=== PATIENT | female | born 1950 | race Asian ===

== ENCOUNTER 2018-01-01 16:56 | Emergency (ER) | payer OTHER ==
[2018-01-01] MEDS ORDERED: TORADOL IM ONE (20:42)
[2018-01-01] MEDS ORDERED: ZOFRAN ODT ONE (20:58)
[2018-01-01] MEDS ORDERED: ZOFRAN ODT PO ONE (21:03)
--- NOTE | 2018-01-01 21:06 | Emergency Department Report ---
ED Neck Pain HPI Chief Complaint: Neck Pain/Injury Stated Complaint: NECK PAIN Time Seen by Provider: 01/01/18 20:40 Duration: 5 Days Neck Pain Location: Lateral Neck, Other (this is an acute on chronic condition ) Severity: moderate Mechanism: Twist Symptoms: Yes Pain with Movement, Yes Radiation to Left Upper Ext, Yes Numbness (radiculopathy to first and 2nd digit intermittely ), Yes Previous History ( radiculopathy left upper extrem ), No Radiation to Right Upper Ext, No Weakness ED Review of Systems ROS: Stated complaint: NECK PAIN Other details as noted in HPI Constitutional: denies: chills, fever Eyes: denies: eye pain, eye discharge, vision change ENT: denies: ear pain, throat pain Respiratory: denies: cough, shortness of breath, wheezing Cardiovascular: denies: chest pain, palpitations Endocrine: no symptoms reported Gastrointestinal: denies: abdominal pain, nausea, diarrhea Genitourinary: denies: urgency, dysuria, discharge Musculoskeletal: arthralgia, myalgia. denies: back pain Skin: denies: rash, lesions Neurological: numbness (left first and second digit ). denies: headache, weakness, confusion, abnormal gait, vertigo Psychiatric: denies: anxiety, depression Hematological/Lymphatic: denies: easy bleeding, easy bruising ED Past Medical Hx - Past Medical History Previous Medical History?: Yes Hx Hypertension: Yes Hx CVA: No Hx Heart Attack/AMI: No Hx Congestive Heart Failure: No Hx Diabetes: Yes (borderline PCP [facility] 6) Hx Deep Vein Thrombosis: No Hx Pulmonary Embolism: No Hx GERD: No Hx Liver Disease: Yes (Fatty Liver) Hx Renal Disease: No Hx of Cancer: No Hx Sickle Cell Disease: No Hx Arthritis: Yes Hx Headaches / Migraines: No Hx Seizures: No Hx Kidney Stones: No Hx Psychiatric Treatment: No Hx Asthma: No Hx COPD: No Hx Tuberculosis: No Hx Dementia: No Hx HIV: No - Surgical History Past Surgical History?: Yes Hx Coronary Stent: No Hx Open Heart Surgery: No Hx Pacemaker: No Hx Internal Defibrillator: No Hx Cholecystectomy: No Hx Appendectomy: No Hx Breast Surgery: No Additional Surgical History: Nerve decompression 2016 - Social History Smoking Status: Never Smoker Substance Use Type: None - Medications Home Medications: Home Medications Medication Instructions Recorded Confirmed Last Taken Type Cyclobenzaprine [Flexeril] 10 mg PO TID PRN #30 tablet 01/01/18 Unknown Rx Menthol/Camphor [[place] 1 applicatio TP TID PRN #1 tube 01/01/18 Unknown Rx Ointment] Naproxen [Naprosyn TAB] 500 mg PO BID #30 tablet 01/01/18 Unknown Rx Neck Pain Exam - Exam General: Vital signs noted. No distress. Alert and acting appropriately. HEENT: No Facial Pain, No Scalp Tenderness, No Contusion, No Abrasion, No Laceration Neck Pain: Yes Left Paraspinal Tenderness, Yes Left Trapezius Tenderness, Yes Pain with Rotation Left, Yes Pain with L Lateral Flexion, No Midline Tenderness , No Right Paraspinal Tenderness, No Right Trapezius Tenderness, No Pain with Rotation Right, No Pain with Extension, No Pain with Flexion, No pain with R Lateral Flexion Chest: Yes Clear Lung Sounds, No Pain with Respirations Heart: Yes Regular, No Murmur Back: No Thoracic Tenderness, No Lumbar Tenderness Neuro: Yes Numbness (intermittent tingling first and second digit finger tips ) , Yes Normal Reflexes, No Weakness, No Radicular Deficits ED Course Vital Signs 01/01/18 17:29 Temperature 98.6 F Pulse Rate 87 Respiratory 18 Rate Blood Pressure 151/87 Blood Pressure 151/87 [Right] O2 Sat by Pulse 100 Oximetry ED Medical Decision Making - Medical Decision Making 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 directed to return to ed if symptoms worsen. pt verbalized agreement and understanding of same. Critical care attestation.: If time is entered above; I have spent that time in minutes in the direct care of this critically ill patient, excluding procedure time. ED Disposition Clinical Impression: Chronic neck pain Radiculopathy Qualifiers: Spinal region: cervical Qualified Code(s): M54.12 - Radiculopathy, cervical region Neck strain Qualifiers: Encounter type: initial encounter Qualified Code(s): S16.1XXA - Strain of muscle, fascia and tendon at neck level, initial encounter Disposition: TO HOME OR SELFCARE Is pt being admited?: No Does the pt Need Aspirin: No Condition: Good Instructions: Cervical Spine Strain (ED) Prescriptions: Cyclobenzaprine [Flexeril] 10 mg PO TID PRN #30 tablet PRN Reason: Muscle Spasm Menthol/Camphor [[place] Ointment] 1 applicatio TP TID PRN #1 tube PRN Reason: Pain , Severe (7-10) Naproxen [Naprosyn TAB] 500 mg PO BID #30 tablet Referrals: CHINA SANTIAGO MD [Primary Care Provider] - 3-5 Days PRIMARY CARE, [Referring] - 3-5 Days Forms: Work/School Release Form(ED) Time of Disposition: 21:17
[2018-01-01 21:36] VITALS: BP 126/90
== END 2018-01-01 21:38 | disposition home or self-care (01) ==
LOC: ED 16:56
DX: S16.1XXA Strain of muscle, fascia and tendon at neck level, initial encounter (principal); M54.12 Radiculopathy, cervical region; I10 Essential (primary) hypertension; E11.9 Type 2 diabetes mellitus without complications; X58.XXXA Exposure to other specified factors, initial encounter; Y93.89 Activity, other specified; Y92.89 Other specified places as the place of occurrence of the external cause; Y99.8 Other external cause status
CPT/HCPCS: 96372; 99282; J1885; Q0162